=== PATIENT | male | born 1990 | race Caucasian/White ===

== ENCOUNTER 2017-05-19 19:33 | Emergency (ER) | payer MEDICAID ==
[~2017-05-19] VITALS: Ht 170.2 cm; Wt 110.0 kg
[2017-05-19] MEDS ORDERED: SODIUM CHLORIDE 0.9% 1,000 ML IV ONE (19:40)
[2017-05-19] MEDS ORDERED: MORPHINE SULFATE 4 MG/ML, 1ML ONE (19:56)
[2017-05-19] MEDS ORDERED: ONDANSETRON 2MG/ML, 2ML ONE (19:56)
[2017-05-19] MEDS ORDERED: MORPHINE SULFATE 4 MG/ML, 1ML IVPush PRN (20:00)
[2017-05-19] MEDS ORDERED: ONDANSETRON 2MG/ML, 2ML IVPush ONE (20:00)
[2017-05-19] MEDS ORDERED: LORazepam 2 MG/ML, 1ML ONE (20:05)
[2017-05-19 20:19] LABS: BASOPHILS # (AUTO) 0.03 x10^3/uL (0-0.1); BASOPHILS % (AUTO) 0 % (0-1); EOSINOPHILS # (AUTO) 0.08 x10^3/uL (0-0.4); EOSINOPHILS % (AUTO) 1 % (1-7); LYMPHOCYTES # (AUTO) 1.61 x10^3/uL (1-3.4); LYMPHOCYTES % (AUTO) 13 % (22-44); MD NO; MEAN CORPUSCULAR HEMOGLOBIN 29.9 pg (27.5-34.5); MEAN CORPUSCULAR HGB CONC 33.5 g/dL (33.2-36.2); MEAN CORPUSCULAR VOLUME 89.3 fL (81-97); MEAN PLATELET VOLUME 8.3 fL (7.4-10.4); MONOCYTES # (AUTO) 0.82 x10^3/uL (0.2-0.8); MONOCYTES % (AUTO) 7 % (2-9); NEUTROPHILS % (AUTO) 79 % (42-75); PLATELET COUNT 332 x10^3/uL (130-400); RED BLOOD COUNT 5.33 x10^6/uL (4.38-5.82); RED CELL DISTRIBUTION WIDTH 13.2 % (9.4-14.8)
[2017-05-19] MEDS ORDERED: METOCLOPRAMIDE 5 MG/ML, 2ML ONE (20:25)
[2017-05-19] MEDS ORDERED: DIPHENHYDRAMINE 50 MG/ML, 1ML ONE (20:25)
[2017-05-19] MEDS ORDERED: METOCLOPRAMIDE 5 MG/ML, 2ML IVPush ONE (20:30)
[2017-05-19] MEDS ORDERED: LORazepam 2 MG/ML, 1ML IVPush ONE (20:30)
[2017-05-19] MEDS ORDERED: DIPHENHYDRAMINE 50 MG/ML, 1ML IVPush ONE (20:30)
[2017-05-19 20:32] LABS: ALBUMIN 4.1 g/dL (3.4-5.0); ANION GAP 8 mmol/L (5-15); CALCIUM 8.6 mg/dL (8.5-10.1); CHLORIDE 110 mmol/L (98-107); CREATININE 0.89 mg/dL (0.7-1.3)
[2017-05-19 21:17] VITALS: BP 126/78
== END 2017-05-19 21:21 | disposition home or self-care (01) ==
LOC: ED 20:15
DX: G40.909 Epilepsy, unspecified, not intractable, without status epilepticus (principal)
CPT/HCPCS: 36415; 70450; 72125; 80048; 82040; 85025; 96361; 96374; 96375; 99285; J1200; J2060; J2405; J2765; J7030